=== PATIENT | male | born 1960 | race Two or more races ===

== ENCOUNTER 2022-12-09 23:40 | Emergency (ER) | payer OTHER ==
[~2022-12-09] VITALS: Ht 172.7 cm; Wt 120.0 kg
[2022-12-10 00:38] VITALS: BP 116/70
== END 2022-12-10 01:31 | disposition home or self-care (01) ==
LOC: ER 23:40
DX: M25.522 Pain in left elbow (principal); E11.9 Type 2 diabetes mellitus without complications; E78.5 Hyperlipidemia, unspecified; I10 Essential (primary) hypertension; Z88.0 Allergy status to penicillin; Z88.1 Allergy status to other antibiotic agents; W18.39XA Other fall on same level, initial encounter; Y93.89 Activity, other specified; Y92.89 Other specified places as the place of occurrence of the external cause; Y99.8 Other external cause status
CPT/HCPCS: 73080